=== PATIENT | female | born 1955 | race Caucasian/White ===

== ENCOUNTER → 2021-04-10 | Outpatient (CLI) | payer OTHER ==
[2021-04-10 12:41] LABS: CHLORIDE 102 MMOL/L (98-107); POTASSIUM 3.9 MMOL/L (3.6-5.0); SODIUM 136 MMOL/L (135-145)
[2021-04-10 12:42] LABS: ALANINE AMINOTRANSFERASE 11 U/L (0-55); ALBUMIN 4.4 GM/DL (3.2-4.5); ALKALINE PHOSPHATASE 85 U/L (40-136); BILIRUBIN,TOTAL 0.6 MG/DL (0.1-1.0); BUN/CREATININE RATIO 19; CALCIUM 9.8 MG/DL (8.5-10.1); CARBON DIOXIDE 26 MMOL/L (21-32); CREATININE SERUM 0.73 MG/DL (0.60-1.30); GFR ESTIMATED > 60; GLUCOSE 115 MG/DL (70-105); TOTAL PROTEIN 7.5 GM/DL (6.4-8.2)
[2021-04-10 14:49] LABS: TRIGLYCERIDES 179 MG/DL (<150); VLDL CHOLESTEROL 36 MG/DL (5-40)
[2021-04-10 14:54] LABS: CHOLESTEROL 224 MG/DL (< 200)
[2021-04-10 14:55] LABS: HDL CHOLESTEROL 37 MG/DL (40-60); URIC ACID 4.4 MG/DL (2.6-7.2)
== END ==
LOC: LAB FS 11:59
PROVIDERS: ATTEND Family Medicine
DX: I10 Essential (primary) hypertension (principal); M10.9 Gout, unspecified
CPT/HCPCS: 36415; 80053; 80061; 84550

== ENCOUNTER → 2021-05-30 | Outpatient (CLI) | payer SELFPAY ==
--- NOTE | 2021-05-30 10:36 | Diagnostic Imaging Report ---
INDICATION: Hyperlipidemia CT cardiac calcium score study performed with noncontrast images of the heart, followed by calcium score generated via protocol. Dose reduction protocol was used. The visualized portions of the lung robert were clear. The entirety of the lung robert are not imaged on this study. Aorta was not aneurysmal. There is no adenopathy visualized in the image levels. There are some calcified nodes in the right hilum and mediastinum compatible with granulomatous disease. CT calcium score is as follows: Score of 1.34 for left main coronary artery. Score of 126.7 for LAD. Score of 1.5 for circumflex coronary artery. Score of 0 for right coronary artery. Total score of 129.5 is given, compatible with moderate plaque burden. IMPRESSION: Coronary calcium score of 129.5 is given, compatible with overall moderate plaque burden. The majority of the plaque is within the LAD. There are underlying granulomatous changes. Dictated by: Dictated on workstation # [id number]
== END ==
LOC: RAD FS 09:36
PROVIDERS: ATTEND Family Medicine
DX: I25.10 Atherosclerotic heart disease of native coronary artery without angina pectoris (principal); I25.83 Coronary atherosclerosis due to lipid rich plaque; E78.5 Hyperlipidemia, unspecified
CPT/HCPCS: 75571

== ENCOUNTER → 2021-09-06 | Outpatient (CLI) | payer MEDICARE ==
[2021-09-06 09:20] LABS: ALBUMIN 4.5 GM/DL (3.2-4.5); BILIRUBIN,DIRECT 0.2 MG/DL (0.0-0.3); BILIRUBIN,TOTAL 1.2 MG/DL (0.1-1.0); TOTAL PROTEIN 7.6 GM/DL (6.4-8.2)
== END ==
LOC: LAB FS 08:08
PROVIDERS: ATTEND Family Medicine
DX: E78.5 Hyperlipidemia, unspecified (principal)
CPT/HCPCS: 36415; 80061; 80076

== ENCOUNTER → 2022-02-10 | Outpatient (CLI) | payer MEDICARE | LOC: LAB FS 09:57 | PROVIDERS: ATTEND Specialist | DX: Z01.812 Encounter for preprocedural laboratory examination (principal); Z20.822 Contact with and (suspected) exposure to COVID-19 | CPT/HCPCS: 87635 ==

== ENCOUNTER → 2022-06-05 | Outpatient (CLI) | payer MEDICARE ==
[2022-06-05 15:22] LABS: POTASSIUM 3.9 MMOL/L (3.6-5.0)
[2022-06-05 15:23] LABS: ALBUMIN 4.3 GM/DL (3.2-4.5); BILIRUBIN,TOTAL 0.8 MG/DL (0.1-1.0); CALCIUM 9.6 MG/DL (8.5-10.1); CREATININE SERUM 0.7 MG/DL (0.60-1.30); TOTAL PROTEIN 7.6 GM/DL (6.4-8.2)
[2022-06-06 15:14] LABS: URIC ACID 4.1 MG/DL (2.6-7.2)
== END ==
LOC: LAB FS 14:45
PROVIDERS: ATTEND Family Medicine
DX: E78.5 Hyperlipidemia, unspecified (principal); I10 Essential (primary) hypertension; M10.9 Gout, unspecified
CPT/HCPCS: 36415; 80053; 80061; 84550